=== PATIENT | male | born 1955 | race Caucasian/White ===

== ENCOUNTER 2019-04-26 18:19 | Observation (INO) | payer MEDICARE, MEDICAID ==
[~2019-04-26] VITALS: Ht 185.4 cm; Wt 102.2 kg
[2019-04-26] MEDS ORDERED: temazepam 15mg capsule PO PRN (21:00)
--- NOTE | 2019-04-26 21:04 | NUR ---
Patient arrived to unit at 2049 via gurney from [facility]. received report from [employer] upon arrival. JASON Salazar from [facility] called and gave me report at 2019. Dr Shirley has been notified, awaiting orders. Patient is not in any distress at this time. Will continue to monitor.
[2019-04-26 21:10] VITALS: BP 120/69
[2019-04-26] MEDS ORDERED: ondansetron/PF 4mg/2ml inj IV PRN (21:20)
[2019-04-26] MEDS ORDERED: aminophylline 250mg/10ml inj. IV PRN (21:20)
[2019-04-26] MEDS ORDERED: magnesium hydroxide 30ml (MOM) UD suspension PO PRN (21:20)
[2019-04-26] MEDS ORDERED: nitroGLYCERIN 0.4mg SUBLingual tab SL PRN (21:20)
[2019-04-26] MEDS ORDERED: acetaminophen 325mg tablet PO PRN ×2 (21:20)
[2019-04-26] MEDS ORDERED: metoprolol tartrate 1mg/ml inj IV PRN (21:20)
[2019-04-26] MEDS ORDERED: mag hydrox/Alum hydrox/simeth 30ml oral suspension PO PRN (21:20)
[2019-04-26] MEDS ORDERED: regadenoson 0.4mg/5ml syringe IV PRN (21:20)
[2019-04-26] MEDS ORDERED: CLOP75TA15 PO (23:00)
[2019-04-26] MEDS ORDERED: ASPI-1264 PO (23:00)
[2019-04-26] MEDS ORDERED: LISI40TA4 PO (23:00)
[2019-04-26] MEDS ORDERED: ATEN1TAB3 PO (23:00)
[2019-04-26] MEDS ORDERED: ATOR40TA PO (23:00)
[2019-04-26] MEDS ORDERED: AMLO1CAP19 PO (23:00)
--- NOTE | 2019-04-26 23:33 | NUR ---
Patient is being admitted for chest pain. He was sent to our hospital from [facility] for further work up. Jesus is not complaining of any chest pain at this time. Addendum: 04/26/19 at 2338 by Nick Barrios RN Amended: Links added.
[2019-04-27] VITALS: BP 129/74
[2019-04-27 03:57] LABS: BASOPHILS # (AUTO) 0.1 X10'3 (0-0.2); BASOPHILS % (AUTO) 0.7 % (0-1); EOSINOPHILS # (AUTO) 0.3 X10'3 (0-0.9); EOSINOPHILS % (AUTO) 4.3 % (0-6); HEMATOCRIT 44.9 % (42.0-52.0); HEMOGLOBIN 15.3 g/dl (14.0-17.9); LYMPHOCYTES # (AUTO) 1.8 X10'3 (1.1-4.8); LYMPHOCYTES % (AUTO) 23.7 % (21-51); MEAN CORPUSCULAR HEMOGLOBIN 29.5 PG (27.0-31.0); MEAN CORPUSCULAR HGB CONC 34.1 g/dL (33.0-36.5); MEAN CORPUSCULAR VOLUME 86.7 FL (78-98); MEAN PLATELET VOLUME 8.2 FL (7.4-10.4); MONOCYTES # (AUTO) 0.8 X10'3 (0-0.9); MONOCYTES % (AUTO) 10.7 % (2-12); NEUTROPHILS # (AUTO) 4.7 X10'3 (1.8-7.7); NEUTROPHILS % (AUTO) 60.6 % (42-75); PLATELET COUNT 178 X10'3 (140-440); RED BLOOD COUNT 5.18 X10'6 (4.70-6.10); RED CELL DISTRIBUTION WIDTH 14.8 % (11.5-14.5); WHITE BLOOD COUNT 7.7 X10'3 (4.5-11.0)
[2019-04-27 04:10] LABS: ALBUMIN 3.4 G/DL (3.4-5.0); ANION GAP 7 (8-16); BLOOD UREA NITROGEN 23 MG/DL (7-18); CALCIUM 9.1 MG/DL (8.5-10.1); CHLORIDE 108 MMOL/L (99-107); CREATININE 1.15 MG/DL (0.60-1.10); GLUCOSE 101 MG/DL (70-104); SODIUM 141 MMOL/L (135-145); eGFR 64 ML/MIN
--- NOTE | 2019-04-27 06:26 | NUR ---
Problems reprioritized. Patient report given, questions answered & plan of care reviewed with JASON Escobar.
--- NOTE | 2019-04-27 06:30 | NUR ---
Patient in room [facility]. I have received report from Nick GOMEZ and had the opportunity to ask questions and assume patient care.
[2019-04-27 07:00] VITALS: BP 116/71
[2019-04-27] MEDS ORDERED: CLOP75TA35 PO (07:37)
[2019-04-27] MEDS ORDERED: LISI-600 PO (07:37)
[2019-04-27] MEDS ORDERED: AMLO10TA13 PO (07:37)
[2019-04-27] MEDS ORDERED: ATEN25TA PO (07:37)
[2019-04-27] MEDS ORDERED: ALLO300T8 PO (07:37)
[2019-04-27] MEDS ORDERED: ATOR-2 PO (07:37)
[2019-04-27] MEDS: aspirin 81mg tablet.DR PO SCH (08:27)
[2019-04-27 11:34] VITALS: BP 114/71
--- NOTE | 2019-04-27 18:23 | NUR ---
Patient in room [facility] 344A. I have received report from JASON Escobar and had the opportunity to ask questions and assume patient care.
--- NOTE | 2019-04-27 18:30 | NUR ---
Problems reprioritized. Patient report given, questions answered & plan of care reviewed with Yamile GOMEZ.
[2019-04-27 20:00] VITALS: BP 118/70
[2019-04-28] VITALS (10 sets, daily range): BP systolic 119–147; BP diastolic 68–84
[2019-04-28 04:09] LABS: BASOPHILS # (AUTO) 0.1 X10'3 (0-0.2); BASOPHILS % (AUTO) 0.9 % (0-1); EOSINOPHILS # (AUTO) 0.3 X10'3 (0-0.9); HEMATOCRIT 46.9 % (42.0-52.0); HEMOGLOBIN 15.7 g/dl (14.0-17.9); LYMPHOCYTES # (AUTO) 2.1 X10'3 (1.1-4.8); LYMPHOCYTES % (AUTO) 25.9 % (21-51); MEAN CORPUSCULAR HEMOGLOBIN 29.5 PG (27.0-31.0); MEAN CORPUSCULAR HGB CONC 33.4 g/dL (33.0-36.5); MEAN CORPUSCULAR VOLUME 88.3 FL (78-98); MEAN PLATELET VOLUME 8.4 FL (7.4-10.4); MONOCYTES # (AUTO) 0.8 X10'3 (0-0.9); MONOCYTES % (AUTO) 10.3 % (2-12); NEUTROPHILS # (AUTO) 4.8 X10'3 (1.8-7.7); NEUTROPHILS % (AUTO) 58.9 % (42-75); PLATELET COUNT 181 X10'3 (140-440); RED BLOOD COUNT 5.31 X10'6 (4.70-6.10); WHITE BLOOD COUNT 8.1 X10'3 (4.5-11.0)
[2019-04-28 04:23] LABS: ALBUMIN 3.5 G/DL (3.4-5.0); ANION GAP 10 (8-16); BLOOD UREA NITROGEN 25 MG/DL (7-18); BUN/CREATININE RATIO 20.3 (5.4-32.0); CALCIUM 8.7 MG/DL (8.5-10.1); CHLORIDE 106 MMOL/L (99-107); CREATININE 1.23 MG/DL (0.60-1.10); GLUCOSE 101 MG/DL (70-104); POTASSIUM 4.1 MMOL/L (3.5-5.1); SODIUM 142 MMOL/L (135-145); TOTAL CARBON DIOXIDE 26.4 MMOL/L (24-32); eGFR 59 ML/MIN
--- NOTE | 2019-04-28 06:30 | NUR ---
Patient in room [facility]. I have received report from Yamile GOMEZ and had the opportunity to ask questions and assume patient care.
--- NOTE | 2019-04-28 06:30 | NUR ---
Patient in room [facility]. I have received report from and had the opportunity to ask questions and assume patient care.
[2019-04-28] MEDS: aspirin 81mg tablet.DR PO SCH (07:50)
[2019-04-28] MEDS ORDERED: regadenoson 0.4mg/5ml syringe IV ONE (09:24)
[2019-04-28] MEDS ORDERED: regadenoson 0.4mg/5ml syringe IV PRN (09:30)
[2019-04-28] MEDS ORDERED: NITR0.4T48 SL (13:29)
--- NOTE | 2019-04-28 15:30 | NUR ---
patient discharge by resource nurse. IV taken out at this time, patient education was done with resource nurse. Patient ambulated out of hospital at discharge.
== END 2019-04-28 15:24 | disposition home or self-care (01) ==
LOC: SUR 3N 20:38 → UNDOADMOB 20:38 → INTOOBSV 20:38 → SUR 3N 21:17
PROVIDERS: ADMIT Internal Medicine; ATTEND Internal Medicine
DX: I25.119 Atherosclerotic heart disease of native coronary artery with unspecified angina pectoris (principal); E87.5 Hyperkalemia; I12.9 Hypertensive chronic kidney disease with stage 1 through stage 4 chronic kidney disease, or unspecified chronic kidney disease; N18.9 Chronic kidney disease, unspecified; J44.9 Chronic obstructive pulmonary disease, unspecified; Z95.1 Presence of aortocoronary bypass graft; Z79.82 Long term (current) use of aspirin; Z79.02 Long term (current) use of antithrombotics/antiplatelets; Z79.899 Other long term (current) drug therapy
CPT/HCPCS: 36415; 78451; 80048; 84484; 85025; 87081; 93005; 93017; A9500; G0378; J2785